=== PATIENT | male | born 1945 | race Caucasian/White ===

== ENCOUNTER 2022-02-24 09:50 | Outpatient (CLI) | payer MEDICARE, OTHER, SELFPAY ==
--- NOTE | 2022-02-24 10:00 | CRLHL7_ITS ---
For Patients: As a result of the Century Cures Act, medical imaging exams and procedure reports are released immediately into your electronic medical record. You may view this report before your referring provider. If you have questions, please contact your health care provider. Indication: COLON CA FOLLOW UP Technique: Postcontrast CT chest, abdomen and pelvis. 98 cc Isovue 370 intravenous contrast. Please note that all CT scans at this facility use dose modulation, iterative reconstruction, and/or weight-based dosing when appropriate to reduce radiation dose to as low as reasonably achievable. Comparison: 07/15/2021 Findings: In the chest, no suspicious pulmonary nodule is present. The thoracic inlet is normal. Stable subcentimeter subcarinal/paraesophageal lymph nodes. Visualized thyroid normal. No infiltrate or edema. No effusion or pneumothorax. Mild bibasilar scarring. Bochdalek`s hernia on the left again noted containing fat. Old left-sided rib fractures. Benign intraosseous hemangiomas within the thoracic spine are similar. No fracture. No suspicious osseous lesion. In the abdomen, stable subcentimeter intrahepatic cysts. No suspicious intrahepatic lesion. Focal fat deposition is present adjacent to the falciform ligament, as before. The gallbladder is normal. No calcified gallstones. No biliary obstruction. Normal pancreas. Spleen normal. Adrenal glands unremarkable. Bilateral parapelvic renal cysts are similar. Stable nonobstructing stone left kidney. Stable exophytic renal cysts bilaterally. No suspicious renal mass. No hydronephrosis. The ureters are within normal limits. Vascular calcifications. No aneurysm. Normal retroperitoneal and mesenteric lymph nodes. In the pelvis, prostate enlargement again noted with lobular mass effect upon the inferior bladder. No bladder stones. Postop changes of right hemicolectomy. No free air or free fluid. No abscess or obstruction. Sigmoid diverticulosis. No diverticulitis. Small bowel unremarkable. No suspicious lymph nodes in the pelvis or inguinal regions. 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 Multilevel facet degeneration. Umbilical hernia containing fat. Impression: Stable exam. No evidence of metastatic disease. Please note that all CT scans at this facility use dose modulation, iterative reconstruction, and/or weight-based dosing when appropriate to reduce radiation dose to as low as reasonably achievable. Dictated by Major Thomas MD @ 02/24/2022 12:48:20 PM (Electronically Signed)
== END 2022-02-24 09:51 | disposition home or self-care (01) ==
LOC: CT 09:55
PROVIDERS: PCP Family Medicine; Visit Provider Nurse Practitioner Family
DX: C18.9 Malignant neoplasm of colon, unspecified (principal)
CPT/HCPCS: 36415; 36592; 71260; 74177; 80053; 82378; 84153; 85025; Q9967

== ENCOUNTER 2022-08-10 10:00 | Outpatient (RCR) | payer MEDICARE, OTHER, SELFPAY ==
[2022-02-24 10:18] LABS: Basophils Absolute Auto 0.03 K/uL (0.00-0.30); Basophils Percent Auto 0.5 % (0.0-3.0); Eosinophils Absolute Auto 0.06 K/uL (0.00-0.50); Hematocrit 50.5 % (37.0-53.0); Hemoglobin* 16.8 gm/dL (13.5-17.5); Lymphocytes Absolute Auto 1.72 K/uL (0.90-2.90); Lymphocytes Percent Auto 29.3 % (20-44); Mean Corpuscular HGB Conc 33 gm/dL (32-36); Mean Corpuscular Hemoglobin 32 pg (26-34); Mean Corpuscular Volume 98 fL (80-100); Monocytes Percent Auto 10.7 % (0.0-11.0); Neutrophils Absolute Auto 3.44 K/uL (1.7-7.0); Neutrophils Percent Auto 58.5 % (42.0-72.0); Platelet Count* 173 K/uL (140-440); RDW Coefficient of Variation % 12.2 % (11.5-15.5); Red Blood Count 5.18 m/uL (4.30-5.90); White Blood Count* 5.88 K/uL (4.50-11.00)
[2022-02-24 10:21] LABS: Slide Review Reflex No
[2022-02-24 10:33] LABS: Albumin* 4.3 g/dL (3.3-5.0); Chloride* 103 mmol/L (96-114)
[2022-02-24 10:34] LABS: Potassium* 4.2 mmol/L (3.6-5.1); Sodium* 138 mmol/L (135-149)
[2022-02-24 10:36] LABS: Alanine Aminotransferase* 22 U/L (4-50); Alkaline Phosphatase* 92 U/L (40-150); Aspartate Amino Transferase* 26 U/L (12-35); Bilirubin Total* 0.7 mg/dL (0.1-1.5); Blood Urea Nitrogen* 15 mg/dL (7-30); Carbon Dioxide* 26 mmol/L (20-32); Creatinine* 1.1 mg/dL (0.5-1.5); Estimated Glomerular Filt Rate 70 ml/min; Glucose* 95 mg/dL (60-115); Total Protein* 7.5 g/dL (6.0-8.3)
[2022-02-24 10:37] LABS: Calcium* 8.6 mg/dL (8.4-10.6)
[2022-02-24 11:07] LABS: PSA Diagnostic* 2.03 ng/mL (0.10-4.00)
[2022-08-10 10:05] LABS: Basophils Absolute Auto 0.02 K/uL (0.00-0.30); Basophils Percent Auto 0.4 % (0.0-3.0); Eosinophils Absolute Auto 0.06 K/uL (0.00-0.50); Eosinophils Percent Auto 1.1 % (0.0-7.0); Hematocrit 48.1 % (37.0-53.0); Hemoglobin* 16.1 gm/dL (13.5-17.5); Lymphocytes Absolute Auto 1.52 K/uL (0.90-2.90); Lymphocytes Percent Auto 28.4 % (20-44); Mean Corpuscular HGB Conc 34 gm/dL (32-36); Mean Corpuscular Hemoglobin 32 pg (26-34); Mean Corpuscular Volume 96 fL (80-100); Neutrophils Absolute Auto 3.16 K/uL (1.7-7.0); Neutrophils Percent Auto 59.1 % (42.0-72.0); Platelet Count* 156 K/uL (140-440); RDW Coefficient of Variation % 12.1 % (11.5-15.5); Red Blood Count 4.99 m/uL (4.30-5.90); White Blood Count* 5.35 K/uL (4.50-11.00)
[2022-08-10 10:06] LABS: Slide Review Reflex No
[2022-08-10 10:23] LABS: Chloride* 107 mmol/L (96-114)
[2022-08-10 10:24] LABS: Potassium* 4.1 mmol/L (3.6-5.1); Sodium* 138 mmol/L (135-149)
[2022-08-10 10:26] LABS: Creatinine* 1.1 mg/dL (0.5-1.5); Estimated Glomerular Filt Rate 69 ml/min
[2022-08-10 10:27] LABS: Alanine Aminotransferase* 24 U/L (4-50); Alkaline Phosphatase* 84 U/L (40-150); Aspartate Amino Transferase* 30 U/L (12-35); Bilirubin Total* 0.9 mg/dL (0.1-1.5); Blood Urea Nitrogen* 11 mg/dL (7-30); Carbon Dioxide* 25 mmol/L (20-32); Glucose* 96 mg/dL (60-115); Total Protein* 7.3 g/dL (6.0-8.3)
[2022-08-10 10:28] LABS: Calcium* 8.6 mg/dL (8.4-10.6)
== END 2022-08-23 23:59 | disposition home or self-care (01) ==
LOC: CCIC 10:00
PROVIDERS: PCP Family Medicine; Referring Provider Family Medicine; Visit Provider Nurse Practitioner Family
DX: C18.9 Malignant neoplasm of colon, unspecified (principal); N40.2 Nodular prostate without lower urinary tract symptoms
CPT/HCPCS: 36415; 36592; 71260; 74177; 80053; 82378; 84153; 85025; 99212; 99213; 99214; 99215; Q9967

== ENCOUNTER 2023-02-28 14:30 | Outpatient (RCR) | payer MEDICARE, OTHER, SELFPAY ==
[2023-02-21 10:07] LABS: Basophils Absolute Auto 0.02 K/uL (0.00-0.30); Basophils Percent Auto 0.3 % (0.0-3.0); Eosinophils Absolute Auto 0.07 K/uL (0.00-0.50); Eosinophils Percent Auto 0.9 % (0.0-7.0); Hematocrit 50.9 % (37.0-53.0); Hemoglobin* 16.7 gm/dL (13.5-17.5); Immature Granulocytes Abs Auto 0.01 K/uL (0.00-0.30); Immature Granulocytes Pct Auto 0.1 %; Lymphocytes Percent Auto 17.9 % (20-44); Mean Corpuscular HGB Conc 33 gm/dL (32-36); Mean Corpuscular Hemoglobin 33 pg (26-34); Mean Corpuscular Volume 99 fL (80-100); Monocytes Percent Auto 10.1 % (0.0-11.0); Neutrophils Absolute Auto 5.54 K/uL (1.7-7.0); Neutrophils Percent Auto 70.7 % (42.0-72.0); Platelet Count* 148 K/uL (140-440); RDW Coefficient of Variation % 11.9 % (11.5-15.5); Red Blood Count 5.13 m/uL (4.30-5.90); White Blood Count* 7.83 K/uL (4.50-11.00)
[2023-02-21 10:09] LABS: Slide Review Reflex No
[2023-02-21 10:28] LABS: Albumin* 4.3 g/dL (3.3-5.0); Chloride* 105 mmol/L (96-114); Potassium* 4.1 mmol/L (3.6-5.1); Sodium* 139 mmol/L (135-149)
[2023-02-21 10:31] LABS: Alanine Aminotransferase* 26 U/L (4-50); Alkaline Phosphatase* 93 U/L (40-150); Anion Gap 10 mEq/L (7-15); Aspartate Amino Transferase* 37 U/L (12-35); Bilirubin Total* 1.2 mg/dL (0.1-1.5); Blood Urea Nitrogen* 18 mg/dL (7-30); Carbon Dioxide* 24 mmol/L (20-32); Estimated Glomerular Filt Rate 78 ml/min; Glucose* 91 mg/dL (60-115); Total Protein* 7.8 g/dL (6.0-8.3)
[2023-02-21 10:32] LABS: Calcium* 8.7 mg/dL (8.4-10.6)
[2023-02-22 21:19] LABS: Carcinoembryonic Antigen 2.5 ng/mL
== END 2023-08-20 23:59 | disposition home or self-care (01) ==
LOC: CCIC 14:30
PROVIDERS: Nurse Practitioner Family; PCP Family Medicine; Referring Provider Family Medicine; Visit Provider Internal Medicine Hematology & Oncology
DX: C18.9 Malignant neoplasm of colon, unspecified (principal)
CPT/HCPCS: 36415; 36592; 71260; 74177; 80053; 82378; 85025; 99212; 99213; Q9967